=== PATIENT | male | born 1970 | race Caucasian/White ===

== ENCOUNTER 2017-01-16 18:54 | Emergency (ER) | payer OTHER ==
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
== END 2017-01-16 20:45 | disposition home or self-care (01) ==
LOC: ER 18:54
DX: R07.89 Other chest pain (principal); S80.11XA Contusion of right lower leg, initial encounter; I10 Essential (primary) hypertension; E78.5 Hyperlipidemia, unspecified; V89.2XXA Person injured in unspecified motor-vehicle accident, traffic, initial encounter